=== PATIENT | male | born 1940 | race Caucasian/White ===

== ENCOUNTER 2017-05-30 11:53 | Emergency (ER) | payer OTHER ==
[2017-05-30 12:08] LABS: EOSINOPHIL (%) 1.5 % (0-5); EOSINOPHIL COUNT 0.2 K/uL (0-0.3); IMMATURE GRANULOCYTE (%) 0.5 % (0.0-0.7); IMMATURE GRANULOCYTE COUNT 0.1 K/uL; INSTRUMENT ABS NEUTROPHIL CT 6.5 K/uL; LYMPHOCYTE COUNT 2.6 K/uL (1.0-2.8); MCH 31.9 PG (29.0-34.0); MCHC 34.2 G/DL (30.0-36.0); MCV 93.3 FL (86-99); MEAN PLAT.VOLUME 9.5 uM^3 (9.0-12.4); MONOCYTE (%) 7.4 % (3-12); MONOCYTE COUNT 0.7 K/uL (0-0.8); NEUTROPHIL (%) 64.6 % (45-76); NEUTROPHIL COUNT 6.5 K/uL (1.8-6.4); PLATELET COUNT 266 K/uL (156-360); RBC DIS.WIDTH-CV 12.9 % (11.8-14.6); RBC DIS.WIDTH-SD 43.9 % (39-53); RED BLOOD COUNT 5.36 M/uL (4.00-5.50)
[2017-05-30 12:17] LABS: AMYLASE 34 IU/L (1-118); CHLORIDE 103 mEq/L (99-109); POTASSIUM 4.1 mEq/L (3.7-5.4); SODIUM 139 mEq/L (136-147)
[2017-05-30 12:18] LABS: GLUCOSE 171 mg/dL (70-99)
[2017-05-30 12:20] LABS: ANION GAP 13 MEQ/L (2-14)
[2017-05-30 12:22] LABS: SERUM ETHYL ALCOHOL < 10 mg/dL
[2017-05-30 12:23] LABS: UREA NITROGEN (BUN) 21 mg/dL (9-23)
[2017-05-30 12:25] LABS: LIPASE 65 U/L (1.0-51.0)
[2017-05-30 12:32] LABS: GFR ESTIMATE (CALCULATED) > 59 mL/min/
[2017-05-30] MEDS ORDERED: IBUPROFEN600 MG PO (15:39)
== END 2017-05-30 15:42 | disposition home or self-care (01) ==
LOC: TRA 11:53
PROVIDERS: Emergency Medicine
DX: S00.81XA Abrasion of other part of head, initial encounter (principal); V43.52XA Car driver injured in collision with other type car in traffic accident, initial encounter; I25.2 Old myocardial infarction
CPT/HCPCS: 70450; 71010; 80048; 81003; 82150; 83690; 85025; 86850; 86900; 86901; 99281; 99285; G0480